=== PATIENT | female | born 1970 | race African-American/Black ===

== ENCOUNTER 2016-09-13 13:17 | Emergency (ER) | payer MEDICAID ==
[~2016-09-13] VITALS: Ht 154.9 cm; Wt 70.0 kg
[~2016-09-13 13:17] MED LIST: HYDR50TA5 PO; NAPR500 PO; NIFE1TAB85 PO; PENI500T PO
[2016-09-13 13:18] VITALS: BP 205/105; PULSE 75; RESP 15; TEMP 98; O2SAT 98
[2016-09-13 13:25] VITALS: BP 198/96
--- NOTE | 2016-09-13 13:33 | PD ---
HPI . needs procardia refill Chief Complaint: Medication Refill Request Time Seen by Provider: 13:32 Travel History International Travel<30 days: No Contact w/Intl Traveler<30days: No Traveled to known affect area: No History of Present Illness HPI 38-year-old with hypertension here for medication refill on Procardia. She has no other complaints. PFSH Past Medical History Cardiovascular Problems: Yes (htn) Hypertension: Yes Past Surgical History Section: Yes Cholecystectomy: Yes Gynecologic Surgery: Yes () Social History Alcohol Use: No Tobacco Use: No Substance Use: No Allergies-Medications (Allergen,Severity, Reaction): Coded Allergies: No Known Allergies (Unverified , 09/13/16) Reported Meds & Prescriptions Reported Meds & Active Scripts Active Procardia XL (Nifedipine) 30 Mg Tab 30 Mg PO DAILY Reported Procardia XL (Nifedipine) 30 Mg Tab 30 Mg PO BID Review of Systems General / Constitutional: No: Fever Eyes: No: Visual changes HENT: No: Headaches Cardiovascular: No: Chest Pain or Discomfort Respiratory: No: Shortness of Breath Gastrointestinal: No: Abdominal Pain Genitourinary: No: Dysuria Musculoskeletal: No: Pain Skin: No Rash Neurologic: No: Weakness Psychiatric: No: Depression Endocrine: No: Polydipsia Hematologic/Lymphatic: No: Easy Bruising Physical Exam Narrative GENERAL: AAO x 3, no acute distress, Well-nourished, well-developed patient. SKIN: Warm and dry. No visible rashes or bruising. HEAD: Normocephalic and atraumatic. EYES: No scleral icterus. No injection or drainage. ENT: No nasal drainage noted. Mucous membranes pink. Airway patent. NECK: Supple, trachea midline. No JVD. Enlarged thyroid bilaterally CARDIOVASCULAR: Regular rate and rhythm without murmurs, gallops, or rubs. RESPIRATORY: Breath sounds equal bilaterally. No accessory muscle use. No rhonchi or rales. GASTROINTESTINAL: Abdomen soft, non-tender, nondistended. EXTREMITIES: No cyanosis or edema. BACK: Nontender without obvious deformity. No CVA tenderness. PSYCH: AAO x 3, normal affect. Data Data Last Documented VS Vital Signs Date Time Temp Pulse Resp B/P Pulse Ox O2 Delivery O2 Flow Rate FiO2 09/13/16 13:25 198/96 09/13/16 13:18 98.0 75 15 98 MDM Medical Decision Making Medical Screen Exam Complete: Yes Emergency Medical Condition: Yes Medical Record Reviewed: Yes Differential Diagnosis Medication refill, hypertension, less likely ACS Narrative Course 38-year-old with hypertension here for medication refill on Procardia. She has no other complaints. No acute findings on exam except for incidental finding of enlarged thyroid. Recommended follow-up primary care provider for further workup including ultrasound. Patient verbalized understanding of instructions, questions were answered, and thanked me for their care. I advised them if their condition worsens, please return to the nearest emergency room for further care. Diagnosis Primary Impression: Medication refill Patient Instructions: General Instructions Additional Instructions: Please return to emergency department if your symptoms return or worsen. Follow up with your primary care provider. Take medications as prescribed. Med/Other Pt SpecificInfo: Prescription(s) given Scripts Nifedipine ER 24 HR (Procardia XL)30 Mg Tab30 Mg PO DAILY #15 TAB Ref 0 Prov:Thang Hancock MD 09/13/16 Disposition: 01 DISCHARGE HOME Condition: Stable Louisa Metcalf Sep 13, 2016 13:33
[2016-09-13] MEDS ORDERED: NIFE1TAB85 PO ×2 (13:37→13:39)
== END 2016-09-13 14:00 | disposition home or self-care (01) ==
LOC: NEPB 13:17
DX: I10 Essential (primary) hypertension (principal); Z76.0 Encounter for issue of repeat prescription
CPT/HCPCS: 99281

== ENCOUNTER 2017-05-25 16:55 | Emergency (ER) | payer MEDICAID ==
[~2017-05-25 16:55] MED LIST changes: -HYDR50TA5 PO; -NAPR500 PO; -PENI500T PO
[2017-05-25 16:57] VITALS: BP 207/102; PULSE 91; RESP 17; TEMP 99.3; O2SAT 99
[2017-05-25] MEDS ORDERED: LOSA25TA PO (17:36)
[2017-05-25] MEDS ORDERED: HYDR12.57 PO (17:36)
[2017-05-25] MEDS ORDERED: VERA120T3 PO (17:36)
[2017-05-25] MEDS ORDERED: VERAPAMIL HCL 120 MG TAB PO ONE (17:45)
[2017-05-25] MEDS ORDERED: LOSARTAN 25 MG TAB PO ONE (17:45)
[2017-05-25] MEDS ORDERED: HYDROCHLOROTHIAZIDE 12.5 MG CAP PO ONE (17:45)
--- NOTE | 2017-05-25 17:54 | PD ---
HPI Chief Complaint: Medication Refill Request Time Seen by Provider: 17:33 Travel History International Travel<30 days: No Contact w/Intl Traveler<30days: No Traveled to known affect area: No History of Present Illness HPI 46-year-old female presents to the emergency room requesting medication refills of her blood pressure medications. States she last took her medications last night. morning dose. She is on losartan, HCTZ, and verapamil. States she has a primary care physician but cannot go to him because it is too much money so she has to come here to meet her share of cost. Patient denies dizziness, chest pain, headache, or any other symptoms at this time. PFSH Past Medical History Cardiovascular Problems: Yes (HTN) Hypertension: Yes Tetanus Vaccination: Unknown ?: Not Past Surgical History Section: Yes Cholecystectomy: Yes Gynecologic Surgery: Yes () Social History Alcohol Use: No Tobacco Use: No Substance Use: No Allergies-Medications (Allergen,Severity, Reaction): Coded Allergies: No Known Allergies (Unverified , 09/13/16) Reported Meds & Prescriptions Reported Meds & Active Scripts Active Losartan (Losartan Potassium) 25 Mg Tab 25 Mg PO BID Hydrochlorothiazide 12.5 Mg Cap 12.5 Mg PO DAILY Verapamil (Verapamil HCl) 120 Mg Tab 240 Mg PO DAILY Procardia XL (Nifedipine) 30 Mg Tab 30 Mg PO DAILY Reported Procardia XL (Nifedipine) 30 Mg Tab 30 Mg PO BID Review of Systems Except as stated in HPI: all other systems reviewed are Neg Physical Exam Narrative GENERAL: Well-nourished, well-developed female in no acute distress. Afebrile. Ambulatory. SKIN: Focused skin assessment warm/dry. HEAD: Normocephalic. EYES: No scleral icterus. No injection or drainage. NECK: Supple, trachea midline. No JVD or lymphadenopathy. CARDIOVASCULAR: Regular rate and rhythm without murmurs, gallops, or rubs. RESPIRATORY: Breath sounds equal bilaterally. No accessory muscle use. NEUROLOGICAL: Awake and alert. Cranial nerves II through XII intact. Motor and sensory grossly within normal limits. Five out of 5 muscle strength in all muscle groups. Normal speech. Data Data Last Documented VS Vital Signs Date Time Temp Pulse Resp B/P (MAP) Pulse Ox O2 Delivery O2 Flow Rate FiO2 05/25/17 16:57 99.3 91 17 207/102 (137) 99 Room Air Orders Orders Verapamil (Isoptin) (05/25/17 17:45) Hydrochlorothiazide (Microzide) (05/25/17 17:45) Losartan (Cozaar) (05/25/17 17:45) MDM Medical Decision Making Medical Screen Exam Complete: Yes Emergency Medical Condition: Yes Medical Record Reviewed: Yes Differential Diagnosis Medication refill, hypertension, hypertensive urgency, hypertensive emergency Narrative Course 46-year-old female presents to the emergency room requesting medication refills. States she took her last doses of blood pressure medications last night. She could not go to her PCP because it cost too much money. Patient denies any medical complaints at this time. BP is initially 207/102. He was administered her home medications in the ER. Recheck was 173/82. Patient discharged with one month supply of medications and told to follow up with her primary care physician or return for worsening symptoms. She understands and agrees to plan. Diagnosis Primary Impression: Medication refill Referrals: Primary Care Physician Additional Instructions: Take medications as directed. Follow-up with a primary care physician. Scripts Losartan (Losartan) 25 Mg Tab 25 MG PO BID for Blood Pressure Management, #60 TAB 0 Refills Prov: Thang Hancock MD 05/25/17 Hydrochlorothiazide (Hydrochlorothiazide) 12.5 Mg Cap 12.5 MG PO DAILY, #30 CAP 0 Refills Prov: Thang Hancock MD 05/25/17 Verapamil (Verapamil) 120 Mg Tab 240 MG PO DAILY, #60 TAB 0 Refills Prov: Thang Hancock MD 05/25/17 Disposition: 01 DISCHARGE HOME Condition: Stable Effie Johnston May 25, 2017 17:54
[2017-05-25 18:54] VITALS: BP 173/82
== END 2017-05-25 19:01 | disposition home or self-care (01) ==
LOC: NEPD 16:55
DX: I10 Essential (primary) hypertension (principal); Z76.0 Encounter for issue of repeat prescription
CPT/HCPCS: 99284